=== PATIENT | female | born 1950 | race American Indian/Alaskan Native ===

== ENCOUNTER 2018-06-16 16:02 | Outpatient (CLI) | payer OTHER | END 2018-06-16 16:03 | disposition home or self-care (01) | LOC: LABHHL 16:02 | PROVIDERS: ATTEND Specialist | DX: N63.11 Unspecified lump in the right breast, upper outer quadrant (principal) | CPT/HCPCS: 88305 ==

== ENCOUNTER 2020-12-13 09:54 | Outpatient (CLI) | payer MEDICARE ==
--- NOTE | 2020-12-13 11:09 | Mammography Report ---
DEXA BONE DENSITY SCAN INDICATION / CLINICAL INFORMATION: OSTEOPENIA. 70 years Female COMPARISON: 09/12/2017. LUMBAR SPINE, L1-L4: - Bone mineral density (BMD) = 1.117 g/cm2. - T-score = -0.3 - Z-score = 2.2 Change (%) since most recent prior (if available): Increase of 2% LEFT HIP, NECK : - Bone mineral density (BMD) = 0.748 g/cm2. - T-score = -1.4 - Z-score = 0.1 Change (%) since most recent prior (if available): Decrease of 0.4% IMPRESSION: 1. WHO Classification: Osteopenia. Fracture Risk: Increased. BMD Reporting Guidelines (ISCD, 2015) BMD Reporting in Postmenopausal Women and in Men Age 50 and Older * T-scores are preferred. * The WHO densitometric classification is applicable. BMD Reporting in Females Prior to Menopause and in Males Younger Than Age 50 * Z-scores, not T-scores, are preferred. This is particularly important in children. * A Z-score of -2.0 or lower is defined as below the expected range for age, and a Z-score above -2. 0 is within the expected range for age. * Osteoporosis cannot be diagnosed in men under age 50 on the basis of BMD alone. * The WHO diagnostic criteria may be applied to women in the menopausal transition. http://www.iscd.org/official-positions/6936-saxe-ajosroxl-positions-adult/ Signer Name: Jermaine Mazariegos MD Signed: 12/13/2020 11:04 AM Workstation Name: [id number]
== END 2020-12-13 09:55 | disposition home or self-care (01) ==
LOC: SPVWC 09:54
DX: M85.88 Other specified disorders of bone density and structure, other site (principal)
CPT/HCPCS: 77080